=== PATIENT | female | born 1935 | race Caucasian/White ===

== ENCOUNTER 2017-02-24 16:56 | Emergency (ER) | payer MEDICARE, OTHER ==
[2017-02-24 17:11] LABS: BASOPHIL# 0.1 X 10^3uL (0.0-0.1); BASOPHILS 1.2 % (0.0-2.0); EOSINOPHILS 0.7 % (0.0-6.0); HEMATOCRIT 41.9 % (36.0-48.0); HEMOGLOBIN 13.9 g/dL (12.0-16.0); LYMPHOCYTES 29.6 % (20.0-40.0); MEAN CELL VOLUME 91.8 fL (80.0-100.0); MEAN CORPUS. HGB CONCENTRATION 33.2 g/dL (32.0-36.0); MEAN CORPUSCULAR HEMOGLOBIN 30.4 pg (29.0-35.0); MEAN PLATELET VOLUME 7.5 fL (7.4-10.4); MONOCYTES 5.7 % (2.0-10.0); MONOCYTES# 0.4 X 10^3uL (0.2-1.0); NEUTROPHILS 62.8 % (54.0-75.0); NEUTROPHILS# 4.2 X 10^3uL (2.6-6.7); PLATELET COUNT 265 X 10^3uL (130-440); RED BLOOD COUNT 4.57 X 10^6uL (4.20-6.10); RED CELL DISTRIBUTION WIDTH 13.8 % (11.5-14.5)
[2017-02-24 17:16] LABS: BLOOD UREA NITROGEN 19 mg/dL (7-17); CALCIUM 10.3 mg/dL (8.4-10.2); CHLORIDE 108 mmol/L (98-107); GLUCOSE 87 mg/dL (70-100); POTASSIUM 3.7 mmol/L (3.5-5.1); SODIUM 142 mmol/L (137-145)
--- NOTE | 2017-02-24 17:16 | CT REPORT ---
HISTORY: Stroke alert COMPARISON: None. TECHNIQUE: Axial non-contrast images obtained from skull vertex through foramen magnum. Dose reduction technique was utilized. FINDINGS: BRAIN: Acute left thalamic hemorrhage measuring up to 2.2 x 1.3 by at least 1.5 cm. Hematoma has ruptured in to the third ventricle. Hemorrhage present within the third ventricle, minimally within the left late ral ventricle, aqueduct, and in the fourth ventricle. No hydrocephalus at this time. No midline shift . Focal encephalomalacia in the lateral right frontoparietal distribution consistent with remote infarc t. Lucency in the cerebral white matter related to chronic microvascular ischemia. BONES AND EXTRACRANIAL SOFT TISSUES: The orbits are unremarkable. The paranasal sinuses and mastoid air cells are clear. The calvarium is intact. IMPRESSION: 1. Acute left thalamic hematoma measuring up to 2.2 cm. 2. Rupture of hematoma into the third ventricle. Small hemorrhage in the left lateral ventricle, aque duct, and fourth ventricles. No hydrocephalus at this time however given location of IVH patient is s usceptible to developing hydrocephalus. 3. Small remote right MCA distribution infarct. 4. Sequela of chronic microvascular ischemia. Stroke alert critical results discussed with Dr. Andrews at 5:10 PM on 02/24/2017 Final Electronic Signature: This report was electronically signed by Rashad Dyer MD on 02/24/2017 5:14 PM. nevaeh /
[2017-02-24] MEDS ORDERED: ONDANSETRON HCL 4 MG/2 ML VIAL ONE (17:21)
[2017-02-24] MEDS ORDERED: LABETALOL HCL 100 MG/20 ML VIAL IV ONE (17:33)
--- NOTE | 2017-02-24 17:49 | ER NURSING DOCUMENTATION ---
Nurse's Notes [facility] Name:Sarah Edwards Age:81 yrs Sex:Female :1935 Arrival Date:02/24/2017 Time:16:56 BedTrauma-A Private MD: Diagnosis:Intracranial Bleed: Intracerebral Presentation: 02/24 16:59 Acuity: BARBARA 1 st 16:59 Method Of Arrival: EMS: 410 st 16:59 Transition of care: patient was not received from another setting of care. st 17:15 Presenting complaint: EMS states: EMS and pt reports that the patient became mk2 weak and non responsive to questions and unable to talk at 1615. Pt had fallen at home 3 days ago and sustained a laceration to the forehead which is sutured and covered with gauze. Pt arrives alert but unable to speak or answer questions appropriately. Pt is protecting her own airway at this time. Vitals are stable except hypertension of 220. Time Last Known Well for patient was 1615. An acute neurological deficit is present. The patients blood glucose was checked before arriving to the hospital and was found to be normal. Time Last Known Well for the patient was 1615. Care prior to arrival: 12 lead EKG IV initiated. gauge and site 18G R forearm, 18G LAC Glucose check. 83 Oxygen administered. Triage Assessment: 17:20 The onset of the patients symptoms was less than three hours ago. General: Appears mk2 distressed, well groomed, Behavior is flat. Pain: Unable to use pain scale. Pt unable to speak due to stroke. Neuro: Level of Consciousness is awake, alert, Oriented to none Instrument And Controls Technician are weak bilaterally Moves all extremities. Speech with expressive aphasia noted, Facial droop on right, Pupils are constricted. Neuro: Reports Pt unable to speak. Cardiovascular: Heart tones S1 S2 Rhythm is sinus rhythm. Respiratory: Breath sounds are clear bilaterally. 18:11 Derm: Bruising to the R eye and 1.5 inch laceration that has been sutured on forehead. mk2 Center. Stroke Activation: Physician: ED Attending; Name: hitesh; Notified At: 16:45; Arrived At: Physician: electrician bus; Name: ; Notified At: 16:45; Arrived At: Physician: Smt Machine Operator; Name: bloods sent by EMS and ED; Notified At: 16:45; Arrived At: Physician: [not used]; Name: ; Notified At: ; Arrived At: Physician: [not used]; Name: ; Notified At: ; Arrived At: Historical: - Allergies: No known drug Allergies; - Home Meds: 1. Metoprolol Tartrate Oral 2. unknown blood thinner 3. unsure of meds - PMHx: Hypertension; ATRIAL FIB; - PSHx: ablasion; - Tetanus: unknown. - Ebola Screening: : Patient negative for fever greater than or equal to 101.5 degrees Fahrenheit, and additional compatible Ebola Virus Disease symptoms. Patient denies exposure to infectious person. Patient denies travel to an Ebola-affected area in the 21 days before illness onset. No symptoms or risks identified at this time. . - Immunization history: Pneumococcal vaccine status is unknown, Flu Vaccine unknown. - Social history: Smoking status: unknown if patient ever smoked tobacco. Screenin:49 Infectious Disease Risk None. Abuse screen: Unable to Obtain. Nutritional screening: No mk2 deficits noted. Assessment: 17:27 See Triage Assessment done by same RN. mk2 Vital Signs: 17:22 BP 213 / 74; Pulse 71; Resp 22; Temp 98.3(A); Pulse Ox 95% on R/A; Weight 53.52 kg; mk2 Height 5 ft. 8 in. (172.72 cm); 17:22 Body Mass Index 17.94 (53.52 kg, 172.72 cm) mk2 [place] Coma Score: 17:27 Eye Response: spontaneous(4). Verbal Response: incomprehensible(2). Motor Response: mk2 localizes pain(5). Total: 11. NIH Stroke Scale Scores: 17:15 NIHSS Score: 28 mk2 ED Course: 16:58 Patient arrived in ED. jt 16:58 Paul Andrews MD is Attending Physician. sc 16:58 Alice Reyes RN is Primary Nurse. st 16:[address] 17:[address] irina 17:11 Patient moved back [address]. irina 17:14 EKG done. (by ED staff). mk2 17:15 Primary Nurse role handed off by Alice Reyes RN mk2 17:15 Mel Campos RN is Primary Nurse. mk2 17:24 Arm band placed on Bed in low position Call Light in Reach Gowned HOB Elevated Side mk2 rails up x2. 17:27 Oxygen Oxygen administration via nasal cannula @ 2L/min. mk2 17:27 Valuables sent with patient Patient has correct armband on for positive identification. mk2 Placed in gown. Bed in low position. Call light in reach. Side rails up X2. embossing press operator molded goods on. Pulse ox on. NIBP on. Verbal reassurance given. Warm blanket given. 17:50 Report given to Janet flight team. mk2 18:27 NOTE: all clothing, dentures, 4 rings including wedding rings, earrings and hearing mk2 aids given to . Verified left with all these things. Administered Medications: 17:10 Drug: Zofran 4 mg; Route: IVP; Infused Over: 2 mins; Site: left antecubital; mk2 17:25 Follow up: Response: Nausea is decreased mk2 17:21 Drug: Labetalol 10 mg; Route: IVP; Infused Over: 2 mins; Site: left forearm; st 17:25 Follow up: Response: No adverse reaction mk2 Point of Care Testing: Blood Glucose: 17:22 Blood Glucose: 83 mg/dL; mk2 Ranges: Outcome: 17:14 Transferred: Facility Acceptance Time: February 24, 2017 at 17:30 Patient's face sheet was mk2 faxed to accepting facility. Face Sheet included patient's name, address, age, gender, contact information and insurance information. Patient will be transported by: Nurse and Physician Charting and Notes were sent to Accepting Facility. All tests and/or procedures with results, if applicable, were sent to accepting facility. 17:30 ER care complete, transfer ordered by MD. gibbs 17:48 Patient left the ED. mk2 17:49 Transferred: Patient will be transferred to: [facility] mk2 17:49 critical 17:49 Instructed on need for transfer 18:05 Report given to Sebastian Worthington RN mk2 NIH Stroke Scale - NIH Stroke Score Date: 02/24/2017 Time: 17:15 Total Score = 28 1a. Level of Consciousness (LOC) - 0(Alert) 1b. Level of Consciousness (LOC) (Year & Age) - 2(Neither) 1c. LOC Commands (Open & Closes Eyes/Pesticide Chemist) - 1(One) 2. Best Gaze (Lateral Gaze Paresis) - 1(Partial gaze palsy) 3. Visual Field Loss - 1(Partial hemianopia) 4. Facial Palsy - 2(Partial paralysis) 5a. Left Arm: Motor (10-second hold) - 2(Drift, some effort against gravity) 5b. Right Arm: Motor (10-second hold) - 2(Drift, some effort against gravity) 6a. Left Leg: Motor (5-second hold ? always test supine) - 3(No effort against gravity) 6b. Right Leg: Motor (5-second hold ? always test supine) - 3(No effort against gravity) 7. Limb Ataxia (finger/nose & heel/mason ? test with eyes open) - 2(Present in two limbs) 8. Sensory Loss (pinprick arms/legs/face) - 2(Severe to total loss) 9. Best Language: Aphasia (description/naming/reading) - 3(Mute, global aphasia) 10. Dysarthria (speech clarity ? read or repeat words) - 2(Severe) 11. Extinction and Inattention (visual/tactile/auditory/spatial/personal) - 2(Profound) Initials: mk2 Signatures: Tono Rush RN Alice Valentin RN Paul Newman MD MD sc Abbott, Sari Campos, Mel, RN ROBERT mk2 Michelle Pedro
--- NOTE | 2017-02-24 17:49 | ER PHYSICIAN DOCUMENTATION ---
Physician Documentation [facility] Name:Sarah Edwards Age:81 yrs Sex:Female :1935 Arrival Date:02/24/2017 Time:16:56 BedTrauma-A Private MD: Paul Hamm Disposition: 02/24/17 17:30 Transfer ordered to Other Acute Care Facility. Diagnosis is Intracranial Bleed: Intracerebral. - Reason for transfer: Higher level of care. - Accepting physician is Dr. Croft. - Condition is Critical. - Problem is new. - Symptoms are unchanged. COBRA Form completed? Yes Transfer - Mode of Transportation Helicopter HPI: 02/24 17:09 This 81 yrs old Female presents to ER via EMS with complaints of S/S of sc Possible Stroke. 17:09 The patient presents to the emergency department with weakness of the a speech or sc higher order brain function problem, difficulty standing, the patient cannot stand. Onset: The symptom(s)/episode began/occurred 1 hour(s) ago. Context: occurred outdoors. Associated signs and symptoms: Pertinent positives: altered mental status, nausea, weakness. Severity of symptoms: At their worst the symptoms were severe incapacitating. Patient's baseline: Neuro: alert and fully oriented, Motor: no deficits, Ambulation: walks without assistance. Current symptoms: dysphasia, paralysis or paresis. 17:12 The patient has experienced similar episodes in the past, a few times. The patient has sc been recently seen by a physician:. Historical: - Allergies: No known drug Allergies; - Home Meds: 1. Metoprolol Tartrate Oral 2. unknown blood thinner 3. unsure of meds - PMHx: Hypertension; ATRIAL FIB; - PSHx: ablasion; - Tetanus: unknown. - Ebola Screening: : Patient negative for fever greater than or equal to 101.5 degrees Fahrenheit, and additional compatible Ebola Virus Disease symptoms. Patient denies exposure to infectious person. Patient denies travel to an Ebola-affected area in the 21 days before illness onset. No symptoms or risks identified at this time. . - Immunization history: Pneumococcal vaccine status is unknown, Flu Vaccine unknown. - Social history: Smoking status: unknown if patient ever smoked tobacco. ROS: 17:13 Constitutional: Negative for fever, chills, and weight loss. sc Eyes: Negative for injury, pain, redness, and discharge. ENT: Negative for injury, pain, and discharge. Neck: Negative for injury, pain, and swelling. Cardiovascular: Negative for chest pain, palpitations, and edema. Respiratory: Negative for shortness of breath, cough, wheezing, and pleuritic chest pain. Abdomen/GI: Negative for abdominal pain, nausea, vomiting, diarrhea, and constipation. Back: Negative for injury and pain. MS/Extremity: Negative for injury and deformity. 17:13 Skin: Negative for injury, rash, and discoloration. sc 17:13 Neuro: Positive for altered mental status, speech changes, weakness. Exam: Head/Face: Normocephalic, atraumatic. ENT: Nares patent. No nasal discharge, no septal abnormalities noted. Tympanic membranes are normal and external auditory canals are clear. Oropharynx with no redness, swelling, or masses, exudates, or evidence of obstruction, uvula midline. Mucous membranes moist. Neck: Trachea midline, no thyromegaly or masses palpated, and no cervical lymphadenopathy. Supple, full range of motion without nuchal rigidity, or vertebral point tenderness. No meningismus. Chest/axilla: Normal chest wall appearance and motion. Nontender with no deformity. No lesions are appreciated. Respiratory: Lungs have equal breath sounds bilaterally, clear to auscultation and percussion. No rales, rhonchi or wheezes noted. No increased work of breathing, no retractions or nasal flaring. Abdomen/GI: Soft, non-tender, with normal bowel sounds. No distension or tympany. No guarding or rebound. No evidence of tenderness throughout. Back: No spinal tenderness. No costovertebral tenderness. Full range of motion. 17:13 Skin: Warm, dry with normal turgor. Normal color with no rashes, no lesions, and no sc evidence of cellulitis. 17:13 Head/face: Noted is a laceration(s), of the face, healing sutured laceration. 17:13 Eyes: Pupils: equal, round, and reactive to light and accomodation. 17:13 Cardiovascular: Rate: normal, Rhythm: regular. 17:13 Neuro: Cranial nerves: normal except right facial droop, garbled speech, Motor: Strength is 3/5 in the left arm and left leg, Sensation: unable to test. Vital Signs: 17:22 BP 213 / 74; Pulse 71; Resp 22; Temp 98.3(A); Pulse Ox 95% on R/A; Weight 53.52 kg; mk2 Height 5 ft. 8 in. (172.72 cm); 17:22 Body Mass Index 17.94 (53.52 kg, 172.72 cm) mk2 NIH Stroke Scale Scores: 17:15 NIHSS Score: 28 mk2 [place] Coma Score: 17:27 Eye Response: spontaneous(4). Verbal Response: incomprehensible(2). Motor Response: mk2 localizes pain(5). Total: 11. MDM: 16:58 Patient medically screened. la 17:15 The patient was last known to be well at February 24, 2017 at 16:00. Thrombolytics: No sc thrombolytic given due to CT findings of intracranial hemorrhage. Data reviewed: vital signs, nurses notes, lab test result(s), EKG, radiologic studies, CT scan, plain films, and as a result, I will *Transfer Patient. Physician consultation:. 17:28 ECG:. Physician consultation: Dr. Croft was called at 17:29, was contacted at 17:29, la regarding patient's condition. 02/24 17:20 Order name: CAT SCAN; HEAD W/O CON [id number] EDMS 02/24 16:59 Order name: 12-lead EKG; Complete Time: 17:25 la 02/24 16:59 Order name: Continuous Cardiac Monitoring; Complete Time: 17:25 la 02/24 16:59 Order name: I & O; Complete Time: 17:25 la 02/24 16:59 Order name: IV saline lock X2; Complete Time: 17:25 la 02/24 16:59 Order name: NIH Stroke Scale; Complete Time: 17:25 la 02/24 16:59 Order name: NPO; Complete Time: 17:25 la 02/24 16:59 Order name: Pulse Ox Continuous; Complete Time: 17:25 la 02/24 16:59 Order name: Stroke Team Activation Overhead; Complete Time: 17:25 la 02/24 16:59 Order name: Consent form signed (); Complete Time: 17:25 la 02/24 16:59 Order name: Elevate HOB 30 degrees; Complete Time: 17:25 la 06/30 16:59 Order name: Oxygen; Complete Time: 17:25 sc EC:28 Rate is 88 beats/min. Rhythm is irregular with Unifocal PVCs, PACs. QRS [place] is Normal. sc MN interval is normal. T waves are Normal. Clinical impression: Abnormal EKG without significant change. Interpreted by me. Reviewed by me. Dispensed Medications: 17:10 Drug: Zofran 4 mg; Route: IVP; Infused Over: 2 mins; Site: left antecubital; mk2 17:25 Follow up: Response: Nausea is decreased mk2 17:21 Drug: Labetalol 10 mg; Route: IVP; Infused Over: 2 mins; Site: left forearm; st 17:25 Follow up: Response: No adverse reaction mk2 Point of Care Testing: Blood Glucose: 17:22 Blood Glucose: 83 mg/dL; mk2 Ranges: Critical Glucose Levels:Adult <50 mg/dl or >400 mg/dl <40 mg/dl or >180 mg/dl NIH Stroke Scale - NIH Stroke Score Date: 02/24/2017 Time: 17:15 Total Score = 28 1a. Level of Consciousness (LOC) - 0(Alert) 1b. Level of Consciousness (LOC) (Year & Age) - 2(Neither) 1c. LOC Commands (Open & Closes Eyes/Frontend Engineer) - 1(One) 2. Best Gaze (Lateral Gaze Paresis) - 1(Partial gaze palsy) 3. Visual Field Loss - 1(Partial hemianopia) 4. Facial Palsy - 2(Partial paralysis) 5a. Left Arm: Motor (10-second hold) - 2(Drift, some effort against gravity) 5b. Right Arm: Motor (10-second hold) - 2(Drift, some effort against gravity) 6a. Left Leg: Motor (5-second hold ? always test supine) - 3(No effort against gravity) 6b. Right Leg: Motor (5-second hold ? always test supine) - 3(No effort against gravity) 7. Limb Ataxia (finger/nose & heel/mason ? test with eyes open) - 2(Present in two limbs) 8. Sensory Loss (pinprick arms/legs/face) - 2(Severe to total loss) 9. Best Language: Aphasia (description/naming/reading) - 3(Mute, global aphasia) 10. Dysarthria (speech clarity ? read or repeat words) - 2(Severe) 11. Extinction and Inattention (visual/tactile/auditory/spatial/personal) - 2(Profound) Initials: mk2 Signatures: Alice Reyes, RN Paul Newman MD MD sc Kruger, Meg, ROBERT RN mk2
[2017-02-24 19:03] LABS: WHITE BLOOD COUNT 6.7 X 10^3uL (3.9-10.7)
[2017-02-24 19:16] LABS: INR 0.9
== END 2017-02-24 17:49 | disposition short-term general hospital (02) ==
LOC: ER 16:56
DX: I61.9 Nontraumatic intracerebral hemorrhage, unspecified (principal); R29.728 NIHSS score 28; I49.3 Ventricular premature depolarization; I49.1 Atrial premature depolarization; I10 Essential (primary) hypertension; I48.91 Unspecified atrial fibrillation; Z79.01 Long term (current) use of anticoagulants; Z79.899 Other long term (current) drug therapy; S01.81XD Laceration without foreign body of other part of head, subsequent encounter; Z99.81 Dependence on supplemental oxygen; Z74.3 Need for continuous supervision
CPT/HCPCS: 70450; 80048; 85025; 85610; 93005; 93010; 96374; 96375; 99285; A0420; A0425; A0427; J2405